=== PATIENT | female | born 1975 | race Caucasian/White ===

== ENCOUNTER 2023-01-05 02:12 | Emergency (ER) | payer OTHER, SELFPAY ==
[2023-01-05 02:15] VITALS: BP 117/54; PULSE 91; RESP 16; TEMP 36.9; O2SAT 99
[2023-01-05 02:39] LABS: Appearance Urine Cloudy (Clear); Bilirubin Urine 1+ (Negative); Color Urine Red (Yellow); Glucose Urine UA Negative (Negative); Ketones Urine Trace mg/dL (Negative); Leukocyte Esterase Ur Negative LEU/UL (Negative); Nitrate Urine Negative (Negative); Protein Urine 3+ mg/dL (Negative); Specific Grav Ur >= 1.030 (1.001-1.035); Urobilinogen Urine 0.2 mg/dL (<2.0); pH Urine 5.5 (5.0-9.0)
[2023-01-05 03:07] LABS: Bacteria Urine Trace /hpf; Mucus Urine Rare /lpf; Squamous Epithelial Cell Urine Rare /hpf (Few); WBC Urine 0-3 /hpf
[2023-01-05 03:08] LABS: Blood Urine 4+ (Negative)
[2023-01-05 03:09] LABS: Add Urine Microscopic? YES; RBC Urine >75 /hpf (0-2)
--- NOTE | 2023-01-05 03:37 | ED.FEMALEGU ---
HPI - Female Genitourinary General Chief complaint: Urogenital-Female Stated complaint: UTI Time Seen by Provider: 01/05/23 02:19 Source: RN notes reviewed History of Present Illness HPI Narrative: Patient presents emergency department from home for UTI symptoms. Patient states symptoms began began approximately 8 PM last night states that she had pain with urination as well as a feeling of pressure and frequency and noted mild chills. States that she has had UTIs before in the past and this feels similar to the past she denies having any fevers denies any abdominal pain back pain nausea vomiting diarrhea or any other symptoms. States she is currently on her menstrual cycle Related Data Allergies Allergy/AdvReac Type Severity Reaction Status Date / Time No Known Allergies Allergy Verified 01/05/23 02:17 Review of Systems Review of Systems: Gen.: Denies fevers reports chills Respiratory: Denies shortness of breath or cough CV: Denies chest pain GI: Denies abdominal pain nausea, emesis or diarrhea see HPI Musculoskeletal: Denies back pain or muscle pain Neuro: Denies numbness, tingling, weakness or focal weakness Skin: Denies rash Except as documented, all other systems reviewed and negative [facility] Past Medical History Medical History (Updated 01/05/23 @ 03:40 by Eric Preston DO) Patient denies significant medical history Social History Social History (Updated 01/05/23 @ 03:38 by Eric Preston DO) Smoking status: Never smoker Exam Narrative: APPEARANCE: No acute distress, nontoxic, resting in bed EYES: EOMI HEENT: Normocephalic, atraumatic RESPIRATORY: No respiratory distress Clear to auscultation bilaterally with no rhonchi wheezing or rales. CARDIOVASCULAR: Regular rate and rhythm without murmurs rubs or gallops. ABDOMINAL: Soft, nontender, nondistended, no rebound or guarding no flank tenderness MUSCULOSKELETAl: Moves all extremities. No clubbing, cyanosis or edema. NEURO: Awake and alert. Following commands, speech normal, no focal deficits SKIN:: Warm, dry. No rashes lesions or abrasions PSYCHIATRIC: Normal affect/mood, Course Course Emergency Course: Discussed with patient results of workup and diagnosis. Discussed need for follow-up with primary care, proper use of medication, and reasons to return to the emergency department. Patient understands and agrees to current treatment plan Vital Signs Vital signs: Vital Signs Temperature 98.4 F 01/05/23 02:15 Pulse Rate 91 01/05/23 02:15 Respiratory Rate 16 01/05/23 02:15 Blood Pressure 117/54 L 01/05/23 02:15 Pulse Oximetry 99 01/05/23 02:15 Oxygen Delivery Room Air 01/05/23 02:15 Temperature 98.4 F 01/05/23 02:15 Pulse Rate 91 01/05/23 02:15 Respiratory Rate 16 01/05/23 02:15 Blood Pressure 117/54 L 01/05/23 02:15 Pulse Oximetry 99 01/05/23 02:15 Oxygen Delivery Room Air 01/05/23 02:15 MDM - Female Genitourinary MDM Narrative Medical decision making narrative: Patient presents for UTI symptoms states she has had UTIs before similar no abdominal pain no flank tenderness UA does have blood present and patient is on her menstrual cycle question whether she could be having hemorrhagic cystitis versus other and is the patient's symptoms are consistent with prior we will start on antibiotics with follow-up as an outpatient strict return precautions were given for fever increasing pain Lab Data Labs: Lab Results 01/05/23 Range/Units 02:27 Urine Color Red H (Yellow) Urine Appearance Cloudy H (Clear) Urine pH 5.5 (5.0-9.0) Ur Specific [place] >= 1.030 (1.001-1.035) Urine Protein 3+ H (Negative) mg/dL Urine Glucose (UA) Negative (Negative) mg/dL Urine Ketones Trace (Negative) mg/dL Ur Blood (Man) 4+ H (Negative) Urine Nitrate Negative (Negative) Urine Bilirubin 1+ H (Negative) Urine Urobilinogen 0.2 (<2.0) mg/dL Leukocyte Esterase Rfl Negative (Nega
[2023-01-05] MEDS: NITROFURANTOIN MONOHYD MACROCR 100 MG CAP PO (03:47)
== END 2023-01-05 03:50 | disposition home or self-care (01) ==
PROVIDERS: Emergency Provider Emergency Medicine; PCP Emergency Medicine
DX: R30.0 Dysuria (principal)
CPT/HCPCS: 81001; 81025; 99283; A9270

== ENCOUNTER 2023-06-12 10:13 | Day surgery (SDC) | payer OTHER, SELFPAY ==
[2023-05-30 15:13] VITALS: BMI 23.6
[2023-06-02 13:18] VITALS: BMI 25.8
[2023-06-12 11:27] VITALS: BP 130/81; PULSE 84; RESP 16; TEMP 36.8; O2SAT 100
--- NOTE | 2023-06-12 11:39 | WPDANESEPPF ---
Anes - Initial Pre Proc Eval Procedure: Operation Date: 06/12/23 12:30 Proposed Procedures p Screening Colonoscopy - Parker Haile MD Date/Time: 06/12/23 11:39 Surgeon: Parker Haile MD Pre Op Diagnosis: Neoplasm Screening Patient Data Age: 48 Gender: F Height: 1.55 m Weight: 58.7 kg Last Vital Signs Temp 36.8 C 06/12/23 11:27 Pulse 84 06/12/23 11:27 Resp 16 06/12/23 11:27 BP 130/81 06/12/23 11:27 Pulse Ox 100 06/12/23 11:27 O2 Del Method Room Air 06/12/23 11:27 Allergies Allergy/AdvReac Type Severity Reaction Status Date / Time No Known Allergies Allergy Verified 06/12/23 11:39 Home Medications Medication Instructions Recorded Confirmed Type sumatriptan succinate 100 mg tablet 100 mg PO DAILY PRN Migraine 06/02/23 06/02/23 History Headache Patient hx anesthesia problems: none Family hx anesthesia problems: none Results Review: All pre-operative results and documents have been reviewed as part of the pre-operative evaluation. [facility] Past Medical History Medical History (Updated 06/12/23 @ 11:40 by Ryan Kirk MD) Migraine Patient denies significant medical history Surgical History Surgical History (Updated 06/12/23 @ 11:39 by Ryan Kirk MD) History of section Social History Social History Smoking status: Never smoker Alcohol intake: never Substance use: never Substance use type: does not use Living arrangements: with family Spiritual care concerns: No Anes - Eval Final PreProcedure Day of Procedure 06/12/23 11:39 Patient weight: normal Heart: regular rate and rhythm Lungs: clear to auscultation Airway: Mallampati scale class II Neurological: alert and oriented Last oral intake: >/= 8 hours ASA classification: I Emergent: no Anesthetic plan: proceed Anesthesia type and monitoring: general GIVS and standard monitoring Results Review: All pre-operative results and documents have been reviewed as part of the pre-operative evaluation. Informed Consent: The patient's anesthetic plan and its attendant risks and benefits were discussed with the patient/family/POA. Questions were solicited and answers provided to the satisfaction of the patient/family/POA.
[2023-06-12] MEDS: LACTATED RINGERS 1,000 ML 150 ML IV CONT (11:41)
--- NOTE | 2023-06-12 11:43 | PM.HPGS ---
History of Present Illness History of Present Illness Consent: Risks, benefits, and alternatives have been discussed and questions answered. Patient agrees to proceed with procedure. Chief complaint: Neoplasm Screening Narrative: Patty Pratt is a 48 year old female here for first screening colonoscopy Review of Systems Constitutional: Constitutional: Denies headache(s) and Denies weakness Eyes: Eyes: Denies blurry vision ENT: Reports Normal hearing present, Denies headache(s) and Denies neck pain Cardiovascular: Cardiovascular: Denies chest pain and Denies dyspnea Respiratory: Respiratory: Denies dyspnea Gastrointestinal: Gastrointestinal: Reports no additional gastrointestinal complaints Genitourinary: Genitourinary: Denies dysuria Musculoskeletal: Musculoskeletal: Denies neck pain Integumentary/Breasts: Skin/Breast: Denies dry skin Neurologic: Reports Normal hearing present, Denies headache(s) and Denies weakness Psychiatric: Psychiatric: Denies anxiety Endocrine: Endocrine: Denies change in body appearance Hematologic/Lymphatic: Hematologic/Lymphatic: Denies easy bleeding Allergic/Immunologic: Allergic/Immunologic: Denies urticaria PMF Past Medical History Medical History (Updated 06/12/23 @ 11:44 by Parker Haile MD) Colon cancer screening Migraine Patient denies significant medical history Surgical History Surgical History (Updated 06/12/23 @ 11:39 by Ryan Kirk MD) History of section Social History Social History Smoking status: Never smoker Alcohol intake: never Substance use: never Substance use type: does not use Living arrangements: with family Spiritual care concerns: No Meds Home Medications and Allergies Home Medications Medication Instructions Recorded Confirmed Type sumatriptan succinate 100 mg tablet 100 mg PO DAILY PRN Migraine 06/02/23 06/12/23 History Headache Allergies Allergy/AdvReac Type Severity Reaction Status Date / Time No Known Allergies Allergy Verified 06/12/23 11:39 Vital Signs Vital Signs - 24 hr 06/12/23 11:27 Temperature 98.2 F Pulse Rate 84 Respiratory Rate 16 Blood Pressure 130/81 Pulse Oximetry 100 Oxygen Delivery Room Air Exam Const: General: comfortable and no acute distress HENMT: Face/Nose/Sinus: Normal nares present Eyes: General: appearance normal, both eyes and all related structures Neck: Neck: no JVD Resp: Auscultation: clear to auscultation bilaterally Cardio: Rate: regular rate Rhythm: regular rhythm GI: Inspection: non-distended GI Palp: Yes Soft to palpation Skin: General skin exam: normal color Neuro: General: gait normal Speech: normal speech Extrem: General: normal to inspection Psych: Mental Status: mental status grossly normal Assessment and Plan Assessment and plan (1) Colon cancer screening: Code(s): Z12.11 - Encounter for screening for malignant neoplasm of colon Status: Acute Assessment and Plan: colonoscopy
[2023-06-12 12:02] VITALS: BP 94/55; PULSE 70; RESP 16; O2SAT 97
--- NOTE | 2023-06-12 12:07 | WPDANESPN ---
Anes - Prog Note Post-Op Date/Time: 06/12/23 12:07 Cardiovascular status: normal Respiratory status: normal Airway patency: baseline Mental status: baseline Post-Op hydration status: normal Vital Signs: Last Vital Signs Temp 36.8 C 06/12/23 11:27 Pulse 70 06/12/23 12:02 Resp 16 06/12/23 12:02 BP 94/55 L 06/12/23 12:02 Pulse Ox 97 06/12/23 12:02 O2 Del Method Room Air 06/12/23 12:02 Pain Score (VAS): 0/10 I/O: Intake & Output 06/11/23 06/12/23 06/12/23 23:59 07:59 15:59 Intake Total 300 Balance 300 Patient Feedback: Patient satisfied with anesthetic care.
[2023-06-12 12:12] VITALS: BP 98/64; PULSE 68; RESP 16; O2SAT 98
[2023-06-12 12:22] VITALS: BP 97/66; PULSE 61; RESP 18; O2SAT 98
== END 2023-06-12 12:32 | disposition home or self-care (01) ==
PROVIDERS: PCP Internal Medicine; Visit Provider Internal Medicine Gastroenterology
PROC: 0DJD8ZZ Inspection of Lower Intestinal Tract, Via Natural or Artificial Opening Endoscopic (ICD-10-PCS; CPT 45378; principal; 2023-06-12 12:30)
DX: Z12.11 Encounter for screening for malignant neoplasm of colon (principal); K57.30 Diverticulosis of large intestine without perforation or abscess without bleeding; K64.8 Other hemorrhoids
CPT/HCPCS: 45378